=== PATIENT | female | born 1970 | race American Indian/Alaskan Native ===

== ENCOUNTER 2018-09-12 06:04 | Emergency (ER) | payer OTHER ==
[2018-09-12 07:33] LABS: Basophils % (Auto) 0.4 % (0.0-1.8); Eosinophils # (Auto) 0.1 K/mm3 (0.0-0.4); Eosinophils % (Auto) 1.5 % (0.0-4.3); Hematocrit 30.6 % (30.3-42.9); Hemoglobin 9.9 gm/dl (10.1-14.3); Lymphocytes # (Auto) 1.6 K/mm3 (1.2-5.4); Lymphocytes % (Auto) 18.9 % (13.4-35.0); Mean Corpuscular HGB Conc 33 % (30-34); Mean Corpuscular Volume 86 fl (79-97); Monocytes # (Auto) 0.4 K/mm3 (0.0-0.8); Monocytes % (Auto) 4.5 % (0.0-7.3); Platelet Count 323 K/mm3 (140-440); Red Blood Count 3.57 M/mm3 (3.65-5.03); Red Cell Distribution Width 14.6 % (13.2-15.2)
[2018-09-12 08:44] LABS: Bilirubin,Urine NEG (Negative); Blood,Urine NEG (Negative); Color,Urine Straw (Yellow); Mucus,Urine FEW /HPF; Protein,Urine <15 mg/dL mg/dL (Negative); Urobilinogen,Urine < 2.0 mg/dL (<2.0)
[2018-09-12 08:45] LABS: Alanine Aminotransferase 13 units/L (7-56); Albumin 3.9 g/dL (3.9-5); BUN/Creatinine Ratio 15; Blood Urea Nitrogen 16 mg/dL (7-17); Calcium 9.4 mg/dL (8.4-10.2); Hemolysis Index 11
[2018-09-12] MEDS ORDERED: ZOFRAN IV ONE (09:01)
[2018-09-12] MEDS ORDERED: NACL 0.9% 1000 ML 1,000 ML IV ONE (09:01)
[2018-09-12] MEDS ORDERED: SOLU-Medrol IV ONE (09:01)
[2018-09-12] MEDS ORDERED: NORCO 10/325 PO ONE (09:02)
--- NOTE | 2018-09-12 09:21 | Emergency Department Report ---
ED General Adult HPI - General Chief complaint: Headache Stated complaint: LEFT SIDE NUMBNESS/HEADACHE Time Seen by Provider: 09/12/18 08:36 Source: patient Mode of arrival: Ambulatory Limitations: No Limitations - History of Present Illness Initial comments: Patient presents to the emergency department with a chief complaint of lower back pain and muscle spasms. Patient has a history of sarcoidosis of fibromyalgia and states of Flexeril was not working at home. Patient denies any new injury or trauma. Patient also denies chest pain, short of breath, double pain, numbness, weakness. -: Gradual Location: back, upper extremity, lower extremity Radiation: non-radiation Severity scale (0 -10): 8 Quality: aching Consistency: constant Improves with: none Worsens with: none Associated Symptoms: denies other symptoms Treatments Prior to Arrival: none - Related Data Home Medications Medication Instructions Recorded Confirmed Last Taken Hydroxychloroquine [Plaquenil] 200 mg PO BID 09/09/14 09/09/14 09/08/14 20:00 Losartan [Cozaar] 50 mg PO QDAY 09/09/14 09/09/14 09/08/14 20:00 Losartan [Cozaar] 50 mg PO QDAY 09/09/14 09/09/14 09/09/14 04:30 Nortriptyline [Pamelor] 20 mg PO QHS 09/09/14 09/09/14 09/08/14 20:00 Sulindac 200 mg PO BID 09/09/14 09/09/14 09/08/14 20:00 Zolpidem [Ambien] 10 mg PO HS 09/09/14 09/09/14 09/08/14 20:00 prednisoLONE [Millipred Dp] 5 mg PO QDAY 09/09/14 09/09/14 09/08/14 20:00 Previous Rx's Medication Instructions Recorded Last Taken Type Ondansetron [Zofran ODT TAB] 4 mg PO Q8HR PRN #10 tab.rapdis 12/20/14 Unknown Rx HYDROcodone/APAP 5-325 [Carson 1 each PO Q6HR PRN #10 tablet 09/12/18 Unknown Rx 5/325] Ondansetron [Zofran Odt] 4 mg PO Q4HR PRN #20 tab.rapdis 09/12/18 Unknown Rx Allergies Allergy/AdvReac Type Severity Reaction Status Date / Time morphine Allergy Itching Verified 09/09/14 06:33 ED Review of Systems ROS: Stated complaint: LEFT SIDE NUMBNESS/HEADACHE Other details as noted in HPI Comment: All other systems reviewed and negative Constitutional: denies: chills, fever Eyes: denies: eye pain, eye discharge, vision change ENT: denies: ear pain, throat pain Respiratory: denies: cough, shortness of breath, wheezing Cardiovascular: denies: chest pain, palpitations Endocrine: no symptoms reported Gastrointestinal: denies: abdominal pain, nausea, diarrhea Genitourinary: denies: urgency, dysuria, discharge Musculoskeletal: back pain. denies: joint swelling, arthralgia Skin: denies: rash, lesions Neurological: denies: headache, weakness, paresthesias Psychiatric: denies: anxiety, depression Hematological/Lymphatic: denies: easy bleeding, easy bruising ED Past Medical Hx - Past Medical History Previous Medical History?: Yes Hx Hypertension: Yes Hx Headaches / Migraines: Yes Hx Asthma: Yes Additional medical history: SARCODOSIS,FIBROMYALGIA,BRONCHITIS,SLEEP APNEA ( CPAP), Herpes, - Surgical History Past Surgical History?: Yes Additional Surgical History: X 1, D&C, CERVICAL BIOPSY - Social History Smoking Status: Never Smoker Substance Use Type: None - Medications Home Medications: Home Medications Medication Instructions Recorded Confirmed Last Taken Type Hydroxychloroquine [Plaquenil] 200 mg PO BID 09/09/14 09/09/14 09/08/14 20:00 History Losartan [Cozaar] 50 mg PO QDAY 09/09/14 09/09/14 09/08/14 20:00 History Losartan [Cozaar] 50 mg PO QDAY 09/09/14 09/09/14 09/09/14 04:30 History Nortriptyline [Pamelor] 20 mg PO QHS 09/09/14 09/09/14 09/08/14 20:00 History Sulindac 200 mg PO BID 09/09/14 09/09/14 09/08/14 20:00 History Zolpidem [Ambien] 10 mg PO HS 09/09/14 09/09/14 09/08/14 20:00 History prednisoLONE [Millipred Dp] 5 mg PO QDAY 04/25/15 04/25/15 04/24/15 20:00 History Ondansetron [Zofran ODT TAB] 4 mg PO Q8HR PRN #10 tab.rapdis 12/20/14 Unknown Rx HYDROcodone/APAP 5-325 [Carson 1 each PO Q6HR PRN #10 tablet 09/12/18 Unknown Rx 5/325] Ondansetron [Zofran Odt] 4 mg PO Q4HR PRN #20 tab.rapdis 09/12/18 Unknown Rx ED Physical Exam - General Limitations: No Limitations General appearance: alert, in no apparent distress - Head Head exam: Present: atraumatic, normocephalic - Eye Eye exam: Present: normal appearance - ENT ENT exam: Present: mucous membranes dry - Neck Neck exam: Present: normal inspection - Respiratory Respiratory exam: Present: normal lung sounds bilaterally. Absent: respiratory distress - Cardiovascular Cardiovascular Exam: Present: regular rate, normal rhythm. Absent: systolic murmur, diastolic murmur, rubs, gallop - GI/Abdominal GI/Abdominal exam: Present: soft, normal bowel sounds - Extremities Exam Extremities exam: Present: normal inspection - Back Exam Back exam: Present: normal inspection, paraspinal tenderness (Paralumbar TTP) - Neurological Exam Neurological exam: Present: alert, oriented X3, CN II-XII intact. Absent: motor sensory deficit - Psychiatric Psychiatric exam: Present: normal affect, normal mood - Skin Skin exam: Present: warm, dry, intact, normal color. Absent: rash ED Course Vital Signs 09/12/18 06:22 Temperature 98.4 F Pulse Rate 94 H Respiratory 18 Rate Blood Pressure 100/63 O2 Sat by Pulse 100 Oximetry ED Medical Decision Making - Lab Data Result diagrams: 09/12/18 06:58 09/12/18 06:58 Lab Results 09/12/18 09/12/18 09/12/18 Range/Units 06:58 06:58 07:11 WBC 8.4 (4.5-11.0) K/mm3 RBC 3.57 L (3.65-5.03) M/mm3 Hgb 9.9 L (10.1-14.3) gm/dl Hct 30.6 (30.3-42.9) % MCV 86 (79-97) fl MCH 28 (28-32) pg MCHC 33 (30-34) % RDW 14.6 (13.2-15.2) % Plt Count 323 (140-440) K/mm3 Lymph % (Auto) 18.9 (13.4-35.0) % Cross % (Auto) 4.5 (0.0-7.3) % Eos % (Auto) 1.5 (0.0-4.3) % Baso % (Auto) 0.4 (0.0-1.8) % Lymph # 1.6 (1.2-5.4) K/mm3 Cross # 0.4 (0.0-0.8) K/mm3 Eos # 0.1 (0.0-0.4) K/mm3 Baso # 0.0 (0.0-0.1) K/mm3 Seg Neutrophils % 74.7 H (40.0-70.0) % Seg Neutrophils # 6.3 (1.8-7.7) K/mm3 Sodium 136 L (137-145) mmol/L Potassium 3.2 L (3.6-5.0) mmol/L Chloride 97.5 L (98-107) mmol/L Carbon Dioxide 25 (22-30) mmol/L Anion Gap 17 mmol/L BUN 16 (7-17) mg/dL Creatinine 1.1 (0.7-1.2) mg/dL Estimated GFR > 60 ml/min BUN/Creatinine Ratio 15 % Glucose 96 (65-100) mg/dL Calcium 9.4 (8.4-10.2) mg/dL Total Bilirubin 0.30 (0.1-1.2) mg/dL AST 17 (5-40) units/L ALT 13 (7-56) units/L Alkaline Phosphatase 111 (35-129) units/L Total Protein 7.4 (6.3-8.2) g/dL Albumin 3.9 (3.9-5) g/dL Albumin/Globulin Ratio 1.1 % Urine Color Straw (Yellow) Urine Turbidity Clear (Clear) Urine pH 5.0 (5.0-7.0) Ur Specific [place] 1.010 (1.003-1.030) Urine Protein <15 mg/dl (Negative) mg/dL Urine Glucose (UA) Neg (Negative) mg/dL Urine Ketones Neg (Negative) mg/dL Urine Blood Neg (Negative) Urine Nitrite Neg (Negative) Urine Bilirubin Neg (Negative) Urine Urobilinogen < 2.0 (<2.0) mg/dL Ur Leukocyte Esterase Neg (Negative) Urine WBC (Auto) 1.0 (0.0-6.0) /HPF Urine RBC (Auto) 1.0 (0.0-6.0) /HPF U Epithel Cells (Auto) 3.0 (0-13.0) /HPF Urine Mucus Few /HPF Critical care attestation.: If time is entered above; I have spent that time in minutes in the direct care of this critically ill patient, excluding procedure time. ED Disposition Clinical Impression: Back pain, Myalgia Disposition: TO HOME OR SELFCARE Is pt being admited?: No Does the pt Need Aspirin: No Condition: Stable Instructions: Acute Low Back Pain (ED), Musculoskeletal Pain (ED) Additional Instructions: return if worse Prescriptions: HYDROcodone/APAP 5-325 [Carson 5/325] 1 each PO Q6HR PRN #10 tablet PRN Reason: Pain Ondansetron [Zofran Odt] 4 mg PO Q4HR PRN #20 tab.rapdis PRN Reason: Nausea Referrals: AIRAM GARCIA MD [Primary Care Provider] - 3-5 Days [facility] [Provider Group] - 3-5 Days [facility] [Provider Group] - 3-5 Days Time of Disposition: 10:04
[2018-09-12 11:03] VITALS: BP 101/69
== END 2018-09-12 10:50 | disposition home or self-care (01) ==
LOC: ED 06:04
DX: M79.10 Myalgia, unspecified site (principal); M54.5 Low back pain; I10 Essential (primary) hypertension; G40.909 Epilepsy, unspecified, not intractable, without status epilepticus; J45.909 Unspecified asthma, uncomplicated; Z79.899 Other long term (current) drug therapy; Z88.6 Allergy status to analgesic agent
CPT/HCPCS: 36415; 80053; 81001; 85025; 96374; 96375; 99283; J2405; J2930; J7030